=== PATIENT | male | born 1970 | race Hispanic/Latino ===

== ENCOUNTER 2018-02-25 13:23 | Outpatient (CLI) | payer BC ==
--- NOTE | 2018-02-25 15:15 | Mammography Report ---
RIGHT DIGITAL DIAGNOSTIC MAMMOGRAM with CAD and RIGHT BREAST ULTRASOUND: 02/25/18 CLINICAL: 47-year-old male with a right breast lump. COMPARISON:11/06/16 and 11/11/17 mammogram and ultrasound from [facility] FINDINGS: The breast is mostly fatty.Moderate subareolar fibroglandular densities are increased from the 11/06/16 exam and measure 2.8 x 2.9 x 2.0 cm. No mass, architectural distortion or suspicious calcifications. Ultrasound of the the right breast demonstrated moderate subareolar fibroglandular densities and no mass, cyst or shadowing. IMPRESSION: Moderate benign gynecomastia, increased since 11/06/16. BI-RADS CATEGORY: 2 -- Benign RECOMMENDATION: Clinical follow-up. Any decision to biopsy should be based on the clinical findings. COMMENT: Patient follow-up letters are generated by our [employer] application.
== END 2018-02-25 13:24 | disposition home or self-care (01) ==
LOC: SPVWC 13:23
PROVIDERS: ATTEND Surgery
DX: N62 Hypertrophy of breast (principal)